=== PATIENT | female | born 1980 | race Hispanic/Latino ===

== ENCOUNTER → 2019-04-07 | Outpatient (CLI) | payer BC, SELFPAY ==
[2019-04-13 08:48] LABS: HPV APTIMA, High Risk Negative (Negative)
[2019-04-13 08:49] LABS: HPV Reflexed? YES, CHARGE PATIENT
== END | disposition home or self-care (01) ==
PROVIDERS: Visit Provider Obstetrics & Gynecology
DX: Z12.4 Encounter for screening for malignant neoplasm of cervix (principal)
CPT/HCPCS: 87624; 88175; G0145

== ENCOUNTER → 2019-04-27 | Outpatient (CLI) | payer BC, SELFPAY ==
[2019-04-27 18:07] LABS: Progesterone Level 0.36 ng/mL (See Comment)
[2019-04-27 19:22] LABS: Internal QC Validated? YES +Cl - CLEAR BKGD; Pregnancy, Serum, hCG Quali. NEGATIVE Negative
== END | disposition home or self-care (01) ==
PROVIDERS: Visit Provider Obstetrics & Gynecology
DX: Z30.430 Encounter for insertion of intrauterine contraceptive device (principal)
CPT/HCPCS: 36415; 84144; 84703

== ENCOUNTER → 2019-04-29 | Outpatient (CLI) | payer BC, SELFPAY ==
[2019-04-29 21:47] LABS: Chlamydia Trachomatis by PCR Negative (Negative); Neisserai gonorrhoeae by PCR Negative (Negative); Probe Check PASS; Sample Adequacy Control PASS; Specimen Processing Control PASS
== END | disposition home or self-care (01) ==
PROVIDERS: Referring Provider Obstetrics & Gynecology; Visit Provider Obstetrics & Gynecology
DX: Z11.3 Encounter for screening for infections with a predominantly sexual mode of transmission (principal)
CPT/HCPCS: 87491; 87591

== ENCOUNTER → 2020-07-19 | Outpatient (CLI) | payer BC, SELFPAY ==
[2020-07-21 09:03] LABS: HPV Reflexed? NOT INDICATED
== END | disposition home or self-care (01) ==
LOC: LABSPEC 13:45
PROVIDERS: Visit Provider Obstetrics & Gynecology
DX: Z12.4 Encounter for screening for malignant neoplasm of cervix (principal)
CPT/HCPCS: 88175; G0145

== ENCOUNTER 2020-09-12 07:47 | Emergency (ER) | payer BC, SELFPAY ==
[2020-09-12 07:48] VITALS: BP 134/92; PULSE 76; RESP 18; TEMP 36.6; O2SAT 100; BMI 28.3
--- NOTE | 2020-09-12 08:12 | EKG12_ITS ---
Test Reason : DIZZINESS Blood Pressure : / mmHG Vent. Rate : 072 BPM Atrial Rate : 072 BPM P-R Int : 136 ms QRS Dur : 078 ms QT Int : 362 ms P-R-T Axes : -02 061 050 degrees QTc Int : 396 ms Normal sinus rhythm Low voltage QRS Borderline ECG Confirmed by EDGAR SALVADOR, DEIRDRE ([id number]), editorial manager SOCRATES DAVIS ([id number]) on 09/18/2020 10:26:33 A M Referred By: KIA Confirmed By:MISAEL HERNÁNDEZ MD
--- NOTE | 2020-09-12 08:13 | ED.VIS.DYS ---
History of Present Illness Chief Complaint: Dizziness Informant: Patient Onset: Yesterday Activity at onset: Exertion, Light Activity Timing: Intermittent Quality: Dyspnea on exertion Current Severity: Gone - since currently at rest Maximum Severity: Moderate Worsened by: Exertion Relieved by: Rest Associated Symptoms: Negative for: Chills, Cough, Fever Chest Pain: None Narrative: Patient states yesterday she was feeling fatigued abnormal for her, as well as dyspnea with even light exertion/activity, and when dyspneic had associated lightheadedness. No presyncope or syncope. No chest pain. No leg pain or swelling recently or history of DVT or PE. No recent travel or immobilization, no hospitalization or surgery recently. She denies contact with anyone that she knows of with COVID-19, she has not had it, nor has she had the vaccinations for it. She also denies most symptoms we are seeing with COVID-19 such as myalgias, loss of taste/smell, diarrhea, cough, fevers, chills, headaches. She has no past medical history including heart or lung problems. Past Medical History - Allergies and Home Meds Allergies/Adverse Reactions: Allergies No Known Allergies Allergy (Verified 09/12/20 07:50) Primary Care Physician: Adalid Louis MD [Primary Care Provider] - 3-5 Days if not improving Past Medical History: None Smoking Status: Unknown if ever smoked Review of Systems General: Reports: Malaise. Denies: Chills, Fever, Sweats Eyes: Denies: Visual changes - bilaterally, Diplopia ENT: Reports: - - No loss of taste/smell. Denies: Bilateral ear pain, Rhinorrhea, Sore throat Cardiovascular: Denies: Chest pain, Palpitations Respiratory: Reports: Dyspnea, Dyspnea on exertion - With no wheezing when dyspneic. Denies: Cough, Orthopnea Gastrointestinal: Denies: Abdominal pain, Nausea, Vomiting, Diarrhea, Melena, Hematochezia Genitourinary: Reports: - - No menstrual cycles in the past year since she has been on Mirena. Denies: Dysuria, Hematuria, Frequency Musculoskeletal: Denies: Myalgias, Back pain, Swelling, Extremity Pain Skin: Denies: Rash, Wounds Neurological: Denies: Headache, Weakness, Numbness Physical Exam Vital Signs/Narrative: Vital Signs Temp Pulse Resp BP Pulse Ox 09/12/20 07:48 97.9 F 76 18 134/92 H 100 General: Well nourished, Well developed, No Acute Distress - Well-appearing. Conversive in full sentences. Head: Normocephalic, Atraumatic Eyes: Perrl, EOMI ENT: Moist mucous membranes, No rhinorrhea Neck: Supple, Nontender, No lymphadenopathy, No JVD Cardiovascular: Regular rate, Regular rhythm, No murmurs, Normal S1, Normal S2. Negative for: Tachycardia Respiratory: No distress, CTA bilaterally, Chest nontender Abdomen: Soft, Nontender, Nondistended, Normal bowel sounds Back: Nontender, Normal Inspection. Negative for: CVA tenderness Extremities: Nontender, No edema. Negative for: Calf Tenderness Skin: Normal color, No rash, No Trauma Neurological: Alert, Oriented x3, Cranial nerves II-XII grossly intact, Normal Strength, Normal Sensation, Normal Gait Psychological: Normal affect, Normal Mood Diagnostic/Tx/Re-eval Impressions Chest CTA 09/12/20 09:34 IMPRESSION: No acute pulmonary embolism, aortic aneurysm or dissection No pneumonia, pleural effusion or pneumothorax Electronically Signed: Wiliam Gabriel DO at 10:58 EST Tel , Service support , 09/12/20 09:34 CTA Chest W/WO Contrast [CT] Stat 09/12/20 08:15 Mucosa - Nose SARS-CoV-2 Antigen (Rapid) - Final Laboratory Results 09/12/20 09/12/20 09/12/20 08:15 08:15 08:15 WBC 6.0 RBC 4.24 Hgb 12.3 Hct 37.8 MCV 89.2 MCH 29.0 MCHC 32.5 RDW Std Deviation 39.5 RDW Coeff of Shelly 12.3 Plt Count 231 MPV 10.8 Immature Gran % (Auto) 0.200 Neut % (Auto) 64.5 Lymph % (Auto) 28.4 [place] % (Auto) 5.7 Eos % (Auto) 0.5 Baso % (Auto) 0.7 Absolute Neuts (auto) 3.9 Absolute Lymphs (auto) 1.70 Nucleated RBC % 0 D-Dimer Quant (PE/DVT) 0.51 H* Sodium 139 Potassium 3.9 Chloride 106 Carbon Dioxide 27.0 Anion Gap 6 BUN 16 Creatinine 0.80 Estim Creat Clear Calc 81.53 Est GFR (MDRD) Af Amer 102 Est GFR (MDRD) Non-Af 85 BUN/Creatinine Ratio 20.0 Glucose 97 Calcium 9.5 Troponin I < 0.015 Urine Color Urine Clarity Urine pH Ur Specific [place] Urine Protein Urine Glucose (UA) Urine Ketones Urine Occult Blood Urine Nitrite Urine Bilirubin Urine Urobilinogen Ur Leukocyte Esterase Urine RBC Urine WBC Ur Squamous Epith Cells Urine Bacteria Urine Mucus 09/12/20 08:25 WBC RBC Hgb Hct MCV MCH MCHC RDW Std Deviation RDW Coeff of Shelly Plt Count MPV Immature Gran % (Auto) Neut % (Auto) Lymph % (Auto) [place] % (Auto) Eos % (Auto) Baso % (Auto) Absolute Neuts (auto) Absolute Lymphs (auto) Nucleated RBC % D-Dimer Quant (PE/DVT) Sodium Potassium Chloride Carbon Dioxide Anion Gap BUN Creatinine Estim Creat Clear Calc Est GFR (MDRD) Af Amer Est GFR (MDRD) Non-Af BUN/Creatinine Ratio Glucose Calcium Troponin I Urine Color Yellow Urine Clarity Sl. Cloudy Urine pH 7.0 Ur Specific [place] 1.010 Urine Protein Negative Urine Glucose (UA) Normal Urine Ketones Negative Urine Occult Blood 25 H Urine Nitrite Negative Urine Bilirubin Negative Urine Urobilinogen Normal Ur Leukocyte Esterase Negative Urine RBC 0-5 SEEN Urine WBC 0 SEEN Ur Squamous Epith Cells 0-5 SEEN Urine Bacteria 1+ Urine Mucus 0 SEEN - Rhythm Strip Rhythm Strip: Sinus Rhythm Rate: 72 Ectopy: None - EKG Initial EKG Interpretation: Sinus Rhythm, No Acute Injury Pattern - normal EKG. no S1Q3T3. Prior: No Prior - Medical Decision Making Differential here is wide including primary pulmonary and cardiac issues, pulmonary embolism, COVID-19 or other infection, anemia or any cause of a metabolic acidosis. Work-up obtained is negative except for a slightly abnormal D-dimer, necessitating CT angiography of the chest in order to rule out pulmonary embolus. That was done and is negative. Since she had not yet had her chest x-ray, I canceled that since we did the CT. Patient is feeling well while at rest. We ambulated her with pulse oximetry. She did well and had no desaturation, maintaining 100%. At this time I feel she is stable to be discharged home since she has a negative Covid test, the rest of her work-up is negative, and there is no evidence of any acute cardiac abnormality. I advised close of patient follow-up and she is comfortable with that plan. ED Disposition - Plan for ED Patient: Disposition: Home or Assisted Living Diagnosis: Dyspnea on exertion Instructions: ED Dyspnea Referrals: Adalid Louis MD [Primary Care Provider] - 3-5 Days if not improving
--- NOTE | 2020-09-12 08:14 | NURSING ---
NO OLD EKGS
[2020-09-12 08:30] LABS: Absolute Neutrophil Count 3.9 X10^3/uL (2.0-7.7); Basophil# 0.04 X10^3/uL; Basophil% 0.7 % (0-1); Eosinophil# 0.03 X10^3/uL; Eosinophils% 0.5 % (0-5); Hematocrit 37.8 % (37-47); Hemoglobin 12.3 g/dL (12.0-15.0); Lymphocyte % 28.4 % (19-41); Mean Corp Hgb Conc 32.5 g/dL (32-36); Mean Corpuscular Volume 89.2 fL (81-99); Mean Platelet Vol. 10.8 fl (6.2-12.0); Monocyte# 0.34 X10^3/uL; Monocyte% 5.7 % (0-10); NRBC Flagged by Analyzer 0 % (0-5); Neutrophil # 3.86 X10^3/uL (2.7-7.7); Neutrophil % 64.5 % (47-70); Platelet Count 231 K/mm3 (150-450); RBC Distribution Width CV 12.3 % (11.6-14.6); RBC Distribution Width SD 39.5 fl (35.1-43.9); Red Blood Count 4.24 M/mm3 (4.2-5.4)
[2020-09-12 08:39] LABS: D-Dimer Quantitative (DVT/PE) 0.51 FEU/ug/m (0.27-0.49)
[2020-09-12 08:40] LABS: Mucous, Urine 0 SEEN /hpf (<or=2+); White Blood Cells 0 SEEN /hpf (0-5)
[2020-09-12 08:45] LABS: Color, Urine Yellow (Yellow); Glucose, Dipstick Normal (Normal); Ketone-Dipstick Negative (Negative); Leukocyte Esterase-Dipstick Negative /ul (Negative); Nitrite-Dipstick Negative (Negative); Occult Blood-Urine 25 /ul (Negative); Protein-Dipstick Negative (Negative); Urine Bilirubin Dipstick Negative (Negative); Urine Clarity Sl. Cloudy (Clear); Urine Urobilinogen Normal (Normal)
[2020-09-12 08:47] LABS: Anion Gap 6 (5-15); BUN 16 mg/dL (7-18); Calcium,Total 9.5 mg/dL (8.5-10.1); Chloride 106 mmol/L (98-107); EST Glomerular Filtration Rate 85 mL/min (>60); Est Glom Filt Rate - Afr Amer 102 mL/min (>60); Estimated Creatinine Clearance 81.53 ml/min; Glucose 97 mg/dL (74-106); Potassium 3.9 mmol/L (3.5-5.1); Sodium Level 139 mmol/L (136-145)
[2020-09-12 08:50] LABS: Bacteria 1+ /hpf (None Seen); Red Blood Cells-Urine 0-5 SEEN /hpf (0-5); Squamous Epithelial Cells - UA 0-5 SEEN /hpf (5-10)
--- NOTE | 2020-09-12 09:34 | CT_ITS ---
STUDY: CTA CHEST REASON FOR EXAM: Female, 40 years old. sob, abn d-dimer RADIATION DOSAGE (If Supplied By Facility): CTDIvol = ( 9.665 ) mGy, DLP = ( 436.80 ) mGycm TECHNIQUE: The examination was performed with the intravenous administration of IV 100mL Isovue-370. Post-processing of the angiographic images was performed, with multiplanar reformation and 3D reconstruction. Individualized dose optimization techniques were used for this CT. COMPARISON: None. FINDINGS: HEART: Normal. AORTA/GREAT VESSELS: Normal. PULMONARY ARTERIES: Normal. LUNGS/AIRWAYS: Normal. PLEURA: Normal. MEDIASTINUM/THYROID: Normal. SOFT TISSUES: Normal. OSSEOUS STRUCTURES: Normal. UPPER ABDOMEN/ESOPHAGUS: Normal. CT/CTA Chest W/WO Contrast IMPRESSION: No acute pulmonary embolism, aortic aneurysm or dissection No pneumonia, pleural effusion or pneumothorax Electronically Signed: Wiliam Gabriel DO at 10:58 EST Tel , Service support ,
[2020-09-12 10:22] VITALS: BP 113/76; PULSE 69; RESP 14; O2SAT 100
[2020-09-12 12:12] VITALS: BP 127/87; PULSE 72; RESP 17; O2SAT 100
[2020-09-12 12:15] VITALS: O2SAT 100
[2020-09-12 13:27] VITALS: BP 126/76; PULSE 95; RESP 16; O2SAT 99
== END 2020-09-12 13:28 | disposition home or self-care (01) ==
PROVIDERS: Emergency Provider Emergency Medicine; PCP Internal Medicine
DX: R06.09 Other forms of dyspnea (principal)
CPT/HCPCS: 71275; 80048; 81001; 84484; 85025; 85379; 87426; 93005; 96360; 96361; 99284; J7030; Q9967; A4216

== ENCOUNTER 2023-01-06 11:27 | Outpatient (RCR) | payer OTHER, SELFPAY | END 2023-02-03 23:59 | LOC: NS 11:27 | PROVIDERS: PCP Internal Medicine; Referring Provider Internal Medicine; Visit Provider Internal Medicine | DX: Z71.3 Dietary counseling and surveillance (principal); E66.3 Overweight; Z68.27 Body mass index [BMI] 27.0-27.9, adult | CPT/HCPCS: 97802 ==

== ENCOUNTER 2024-03-26 08:00 | Outpatient (RCR) | payer BC, SELFPAY ==
--- NOTE | 2024-01-22 09:57 | HP.PTEVAL_ITS ---
Patient's Visit Information Visit Information Visit Information: YOUNG WHITFIELD is a 43 year old F referred to Physical Therapy by YARI Mathias with a diagnosis of Cystocele and Rectocele. Date of Evaluation: 12/10/23 Physical Therapist: Marisol Jaeger PT, Cert MDT Visit Plan Frequency: 1x/Week Duration: 2-4 Months Plan: PF THERAPY FOR STRENGTHENING, LENGTHENING/RELAXATION AND ENDURANCE TRAINING. URINARY URGE AND FREQUENCY EDUCATION. HEALTHY BLADDER HABIT EDUCATION. TRAINING IN COORDINATION OF PELVIC FLOOR MUSCULATURE WITH HIP AND CORE (TRANSVERSE ABDOMINUS) MUSCULATURE. CORE STRENGTHENING. SONDRA LE ROM, STRETCHING AND STRENGTHENING. TRAINING IN ABDOMINAL CAVITY PRESSURE MGMT WITH ADL'S. 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 NO LIFTING. SOME SITTING. Disability: NO Present symptoms: URINARY LEAKING IF NOT ABLE TO VOID EVERY 2 HOURS. INTERMITTENT FEELING OF BULGING AT THE END OF THE DAY WHEN ON FEET ALL DAY. Present since: ABOUT A YEAR Pain Scale: PATIENT DENIES PAIN Is it getting better, worse or staying the same: STAYING THE SAME Commenced as a result of: NO APPARENT REASON Symptoms at onset: UI Worse: PROLONGED STANDING, DELAYING URINATION, SNEEZING, RUNNING, JUMPING Better: NONE Disturbed sleep: NOT GETTING UP AT NIGHT TO URINATE Previous history/Previous treatment: NO PRIOR TREATMENTS. PATIENT REPORTS THE UI STARTED ABOUT 1.5 OR MORE YEARS AGO AND THE PROLAPSE ABOUT 1 YEAR AGO. Coughing/sneezing/straining: POSITIVE FOR UI Gait: NORMAL How long can you delay the need to urinate: LONG NEEDED IF IT HASN'T BEEN MORE THAN 2 HOURS SINCE LAST VOID, OTHERWISE CAN'T MAKE IT USUALLY. Prolapse (Falling out feeling): INTERMITTENT IN AFTERNOONS/EVENINGS Frequency of Urination: EVERY 2 HOURS Ability to stop urine flow: PARTIALLY Ability to initiate urine stream: YES Dyspareunia: NO Bowel Incontinence: NO Accidents: NO Unexplained weight loss: NO Imaging: NO PMH/Recent major surgery: UNREMARKABLE. Objective Objective: Sitting/Standing Posture: ANTERIOR PELVIC TILT. NO RELEVANT LATERAL SHIFT Other Observations: INDEP GAIT AND TRANSFERS Sensory deficit: SONDRA LE LIGHT TOUCH SENSATION GROSSLY INTACT AND SYMMETRICAL ROM deficit: HIP FLEXOR TIGHTNESS, MILD SONDRA HS TIGHTNESS. MOD SONDRA CALF TIGHTNESS. Motor deficit: SONDRA LE'S 5/5. INTERNAL MANUAL VAGINAL PELVIC FLOOR STRENGTH IS GRADED 3/5 X 3 SEC X 2 REPS. Reflexes: QUADS AND ACHILLES 2+ SONDRA Dural Signs: NEGATIVE SONDRA LE'S. Lumbar mvmt loss: flex - NIL ext - MOD R SG - NIL L SG - NIL PATIENT DENIES PAIN WITH LUMBAR ROM TESTING. Core strength: FAIR Palpation: INTERNAL MANUAL VAGINAL PELVIC FLOOR TESTING REVEALS NO TENDERNESS OR HIGH TONE. OTHER: PATIENT TOLERATED ALL TESTING WELL TODAY. Goals Goal 1:: DECREASE URINARY LEAKAGE EPISODES TO ONE OR LESS PER DAY Goal Time Frame: 4-6 Weeks Goal 2:: PATIENT WILL SUCCESSFULLY DELAY VOIDING LONG NEEDED WHEN URGENCY OCCURS TO SUCCESSFULLY MAKE IT TO THE BATHROOM. Goal Time Frame: 4-6 Weeks Goal 3:: PATIENT WILL DEMONSTRATE/COMMUNICATE 10 CONSISTENT AND CONSECUTIVE 10 SECOND PELVIC FLOOR MUSCLE CONTRACTIONS TO DEMONSTRATE IMPROVED PELVIC FLOOR ENDURANCE. Goal Time Frame: 8-12 Weeks Goal 4:: DEVELOP HEALTHY FLUID INTAKE HABITS WITH FLUID INTAKE OF ? BODY WEIGHT IN OUNCES PER DAY AND 2/3 BEING WATER. Goal Time Frame: 8-12 Weeks Goal 5:: NORMALIZE VOIDING FREQUENCEY TO EVERY 3-4 HOURS. Goal Time Frame: 4-6 Weeks Goal 6:: PATIENT WILL BE INDEP WITH A HEP/HOME INSTRUCTIONS FOR CONTINUED IMPROVEMENT ONCE FORMAL PHYSICAL THERAPY CONCLUDES. Goal Time Frame: 8-12 Weeks Rehabilitation Potential Physical Therapy Diagnosis: STRESS URINARY INCONTINENCE, URINARY FREQUENCY, PELVIC FLOOR WEAKNESS, HIP FLEXOR TIGHTNESS, ANTERIOR PELVIC TILT, CORE WEAKNESS, DECREASED LUMBAR EXTENSION ROM AND LE TIGHTNESS. Rehabilitation Potential: Good Anticipated Interventions Patient/Client Instruction: Educate patient on: Condition, Plan of Care and Risk Factors For the Purpose of:: To improve self management Therapeutic Exercise to Include: Strength training, Endurance training, Postural training, Flexibilty training, Relaxation training and Dynamic Lumbar Stabilization For the Purpose of:: To improve muscle performance and motor function, To improve ability of physical actions for home/community/work/leisure, To decrease soft tissue restriction, To increase flexibility/ROM and To improve self management Text: Thank you for the opportunity to evaluate your patient. For Medicare and Medicare HMO plans, please review the plan of care and approve it. It will need to be FAXED BACK to us at [phone] for Medicare purposes. For Medicare only, by signing this I certify the plan of care. Please let me know if there are questions or concerns regarding this plan of care. Physician Signature: Date:
--- NOTE | 2024-03-26 10:44 | HP.PTDCSUM ---
Discharge Summary D/C summary: It has been my pleasure to treat YOUNG WHITFIELD referred by YARI Mathias, with the diagnosis of Cystocele and Rectocele for a total of 9 visit(s). Discharge Date: 03/26/24 Please see the following information for a summary of their discharge status. Subjective Subjective: PATIENT REPORTS SHE IS DOING GOOD. DENIES HAVING ANY UI FOR A LONG TIME. VODING EVERY 3.5 HOURS ON AVG AND NOTICED 4.5 IS ABOUT HER LIMIT NOW. STATES HER SYMPTOMS ARE NOT interfering WITH HER LIFE AT ALL NOW. PATIENT REPORTS IT ISN'T HARD TO FIT THE EX'S IN BUT HAVING A HARD TIME FINDING A CHAIR HIGH ENOUGH TO DO THE SEATED IR EX. TRIED BUT NOT ABLE TO STOP HER URINE STREAM - PARTIALLY ABLE. HASN'T HAD TO DO MUCH STANDING LATELY AND THEREFORE NOT FEELING MUCH BULGING AGAIN. PATIENT REPORTS SHE IS HAPPY WITH HER PROGRESS AND HER CHIEF COMPLAINT THAT BROUGHT HER TO THERAPY WAS INCONTINENCE. Overall Improvement % Improvement: 100 Objective Objective/Function: THIS PATIENT WAS SEEN TODAY FOR ASSESSMENT OF CURRENT SX'S, PROGRESS TOWARD THE SET PT GOALS AND THE NEED FOR FURTHER PHYSICAL THERAPY VS READINESS FOR DISCHARGE. HEP CHECK, MODIFICATION OF SEATED ISO HIP ADD W/IR AND KEGEL TO SDLY AND PROGRESSION OF HEP WITH: OTB SONDRA MULTIFIDUS PUSH OUTS PF ELEVATOR EX FOR FUTURE PROGRESSION WHEN STRONGER. FUNCTIONAL SCREEN: Incontinence Impact Questionnaire Score: 0 (2 AT EVAL) Urogenital Distress Inventory Score: 3 (7 AT EVAL). THIS PATIENT CONTINUES TO HAVE SIGNS OF PROLAPSE AND PELVIC FLOOR WEAKNESS. SHE REPORTS FEELING BULGING WITH WIPING AND MORE BULGING WITH INCREASED STANDING ACTIVITIES. SHE ALSO REPORTS WEAKNESS WITH PELVIC FLOOR EX'S. SHE IS HOWEVER INDEP WITH A HEP, HAS BEEN TAUGHT HOW TO PROGRESS HER HEP SHE IMPROVES AND HER UI HAS RESOLVED. THIS PT RECOMMENDED PHYSICIAN FOLLOW UP IN A FEW MONTHS AFTER HAVING MORE TIME TO WORK ON THE EX'S AND SOONER IF SYMPTOMS WORSEN OR NEW SX'S DEVELOP. PATIENT AGREEABLE. Goals Goal 1:: DECREASE URINARY LEAKAGE EPISODES TO ONE OR LESS PER DAY Goal Progress: Goal Met Goal 2:: PATIENT WILL SUCCESSFULLY DELAY VOIDING LONG NEEDED WHEN URGENCY OCCURS TO SUCCESSFULLY MAKE IT TO THE BATHROOM. Goal Progress: Goal Met Goal 3:: PATIENT WILL DEMONSTRATE/COMMUNICATE 10 CONSISTENT AND CONSECUTIVE 10 SECOND PELVIC FLOOR MUSCLE CONTRACTIONS TO DEMONSTRATE IMPROVED PELVIC FLOOR ENDURANCE. Goal Progress: Goal Met - in lying Goal 4:: DEVELOP HEALTHY FLUID INTAKE HABITS WITH FLUID INTAKE OF ? BODY WEIGHT IN OUNCES PER DAY AND 2/3 BEING WATER. Goal Progress: Progressing Goal 5:: NORMALIZE VOIDING FREQUENCEY TO EVERY 3-4 HOURS. Goal Progress: Goal Met Goal 6:: PATIENT WILL BE INDEP WITH A HEP/HOME INSTRUCTIONS FOR CONTINUED IMPROVEMENT ONCE FORMAL PHYSICAL THERAPY CONCLUDES. Goal Progress: Goal Met Plan Plan: D/C TO INDEP HEP AND PHYSICAIN FOLLOW UP. PATIENT AGREEABLE. D/C Information d/c sentence: If there are questions or concerns regarding this patient's physical therapy, please feel free to call me at [phone]. Thank you for the referral of this patient. Sincerely, Marisol Jaeger, PT, Cert MDT Balance/Gait/Functional tests Improvement % Improvement: 100
== END 2024-03-26 12:29 | disposition home or self-care (01) ==
LOC: PT 08:00
PROVIDERS: PCP Internal Medicine; Referring Provider Nurse Practitioner Family; Visit Provider Nurse Practitioner Family
DX: N81.11 Cystocele, midline (principal); N81.6 Rectocele
CPT/HCPCS: 97162; 97530